=== PATIENT | male | born 1990 | race Caucasian/White ===

== ENCOUNTER 2021-09-24 09:49 | Emergency (ER) | payer OTHER ==
[~2021-09-24] VITALS: Ht 167.6 cm; Wt 67.4 kg
[2021-09-24 10:57] VITALS: BP 125/70
[2021-09-24] MEDS ORDERED: SULF1TAB24 PO (12:09)
--- NOTE | 2021-09-24 12:09 | PHYS DOC ---
Past Medical History Past Medical History: No Pertinent History Past Surgical History: No Surgical History Smoking Status: Never Smoker Alcohol Use: None Drug Use: None General Adult EDM: Chief Complaint: INSECT BITE HPI: HPI: Patient is a 31-year-old male that presents today with a abscess to his left flank area. Patient states he noted the abscess 2 to 3 days ago, and he says that he has been putting some kind of cream on there to help bring the abscess to the surface, and he noted has been draining over the last 24 to 48 hours. Patient denies fever and chills, and he does not have any past medical history of immunocompromising diseases. Patient denies any trauma or any bite to that area that he knows of. Review of Systems: Review of Systems: Constitutional: Denies fever or chills. [] Eyes: Denies change in visual acuity. [] HENT: Denies nasal congestion or sore throat. [] Respiratory: Denies cough or shortness of breath. [] Cardiovascular: Denies chest pain or edema. [] GI: Denies abdominal pain, nausea, vomiting, bloody stools or diarrhea. [] : Denies dysuria. [] Musculoskeletal: Denies back pain or joint pain. [] Integument: Wound to left flank area Neurologic: Denies headache, focal weakness or sensory changes. [] Endocrine: Denies polyuria or polydipsia. [] Lymphatic: Denies swollen glands. [] Psychiatric: Denies depression or anxiety. [] Heart Score: C/O Chest Pain: No Risk Factors: Risk Factors: DM, Current or recent (<one month) smoker, HTN, HLP, family history of CAD, obesity. Risk Scores: Score 0 - 3: 2.5% MACE over next 6 weeks - Discharge Home Score 4 - 6: 20.3% MACE over next 6 weeks - Admit for Clinical Observation Score 7 - 10: 72.7% MACE over next 6 weeks - Early Invasive Strategies Physical Exam: PE: Constitutional: Well developed, well nourished, no acute distress, non-toxic appearance. [] HENT: Normocephalic, atraumatic, bilateral external ears normal, oropharynx moist, no oral exudates, nose normal. [] Eyes: PERRLA, EOMI, conjunctiva normal, no discharge. [] Neck: Normal range of motion, no tenderness, supple, no stridor. [] Cardiovascular:Heart rate regular rhythm, no murmur [] Lungs & Thorax: Bilateral breath sounds clear to auscultation [] Abdomen: Bowel sounds normal, soft, no tenderness, no masses, no pulsatile masses. [] Skin: Patient has a 3 cm x 5 cm erythemic area to the left flank area, with an scabbed area in the center, there is a scant amount of drainage noted, area is tender to touch. Back: No tenderness, no CVA tenderness. [] Extremities: No tenderness, no cyanosis, no clubbing, ROM intact, no edema. [] Neurologic: Alert and oriented X 3, normal motor function, normal sensory function, no focal deficits noted. [] Psychologic: Affect normal, judgement normal, mood normal. [] Current Patient Data: Vital Signs: Vital Signs Date Time Temp Pulse Resp B/P (MAP) Pulse Ox O2 Delivery O2 Flow Rate FiO2 09/24/21 10:57 98.3 80 18 125/70 (88) 100 Room Air 98.3 EKG: EKG: [] Radiology/Procedures: Radiology/Procedures: [] Course & Med Decision Making: Course & Med Decision Making Pertinent Labs and Imaging studies reviewed. (See chart for details) 12:00 patient appears nontoxic will treat on an outpatient basis with oral antibiotics and the patient is to follow-up with his primary care physician for further evaluation and management of this area. Patient is encouraged to follow-up with his primary care or return here to the emergency department if after 3 days the area is getting bigger even with antibiotic therapy. Isabel Disclaimer: Isabel Disclaimer: This electronic medical record was generated, in whole or in part, using a voice recognition dictation system. Departure Departure Impression: Primary Impression: Abscess Disposition: HOME / SELF CARE / HOMELESS Condition: STABLE Referrals: NO PCP (PCP) Patient Instructions: Abscess Additional Instructions: Bactrim DS take 1 tablet twice daily for 7 days Keep area clean and dry using antibacterial soap to cleanse the wound twice daily Return here to the emergency department or follow-up with your primary care physician if in 3 days the area is not improving or has grown bigger in size or if you develop a fever. [facility] [address] [address] [facility] [address] [place] [address] [facility] [address] [place] [address] [facility] [address] [place] [address] [facility] [address] [place] [address] [address] [place] [address] [address] [place] [address] [employer] [facility] [place] [address] [place] [address] [facility] [address] [place] [address] [facility] [address] [place] [address] Scripts Sulfamethoxazole/Trimethoprim (BACTRIM DS TABLET) 1 Each Tablet 1 TAB PO BID for 7 Days, #14 TAB 0 Refills Prov: CAMERON LNADAVERDE [employer] 09/24/21 CAMERON LANDAVERDE [employer] Sep 24, 2021 12:09
== END 2021-09-24 12:10 | disposition home or self-care (01) ==
LOC: ER 09:49
DX: L02.211 Cutaneous abscess of abdominal wall (principal)
CPT/HCPCS: 99281